=== PATIENT | female | born 1985 ===

== ENCOUNTER 2023-05-13 13:26 | Emergency (ER) | payer BC ==
[~2023-05-13] VITALS: Ht 165.1 cm; Wt 58.3 kg
[2023-05-13 13:55] VITALS: BP 115/72; PULSE 81; RESP 16; TEMP 99; O2SAT 100
== END 2023-05-13 15:19 | disposition home or self-care (01) ==
LOC: ER 13:27
DX: S92.535A Nondisplaced fracture of distal phalanx of left lesser toe(s), initial encounter for closed fracture (principal); W22.8XXA Striking against or struck by other objects, initial encounter; Y93.89 Activity, other specified; Y92.89 Other specified places as the place of occurrence of the external cause; Y99.8 Other external cause status
CPT/HCPCS: 73660; 99283